=== PATIENT | male | born 1990 | race Caucasian/White ===

== ENCOUNTER 2018-02-23 15:24 | Emergency (ER) | payer SELFPAY ==
--- NOTE | 2018-02-23 16:52 | ER ---
Nurse's Notes [facility] Name: Mauricio Martinez Age: 27 yrs Sex: Male : 1990 Arrival Date: 02/23/2018 Time: 15:29 Bed 30 Private MD: Diagnosis: Nausea and vomiting;Diarrhea, unspecified Presentation: 02/23 16:05 Presenting complaint: Patient states: N/V/D x 4-5 days, states, " My job said I have to ph come get a work note since I've been sick for so long." Pt reports that last episode of vomiting was last night, also reports epigastric pain. Transition of care: patient was not received from another setting of care. Onset of symptoms was February 23, 2018. Risk Assessment: Do you want to hurt yourself or someone else? Patient reports no desire to harm self or others. Initial Sepsis Screen: Does the patient meet any 2 criteria? No. Patient's initial sepsis screen is negative. Does the patient have a suspected source of infection? No. Patient's initial sepsis screen is negative. Care prior to arrival: None. 16:05 Method Of Arrival: Ambulatory ph 16:05 Acuity: LUIS 3 ph Triage Assessment: 17:04 GI: Reports diarrhea, in the last couple of days but not today,. mg2 Historical: - Allergies: 16:09 No Known Allergies; ph - PMHx: 16:09 None; ph - PSHx: 16:09 None; ph - Immunization history:: Flu vaccine status is unknown. - Social history:: Smoking status: unknown. - Ebola Screening: : No symptoms or risks identified at this time. Screenin:03 Abuse screen: Denies threats or abuse. Denies injuries from another. Nutritional mg2 screening: No deficits noted. Tuberculosis screening: No symptoms or risk factors identified. Fall Risk None identified. Assessment: 16:51 General: Appears in no apparent distress. comfortable, Behavior is calm, cooperative, mg2 patient refused treatment. provider informed. patient just wants a work note. . 17:02 Pain: Denies pain. Neuro: Level of Consciousness is awake, alert, obeys commands, mg2 Oriented to person, place, time, situation. Cardiovascular: Capillary refill < 3 seconds Patient's skin is warm and dry. Respiratory: Airway is patent Respiratory effort is even, unlabored, Respiratory pattern is regular, symmetrical. GI: Abdomen is flat, non-distended. : No signs and/or symptoms were reported regarding the genitourinary system. EENT: No signs and/or symptoms were reported regarding the EENT system. Derm: Skin is intact, is healthy with good turgor, Skin is pink, warm \\T\\ dry. normal. Musculoskeletal: No signs and/or symptoms reported regarding the musculoskeletal system. Vital Signs: 16:08 BP 146 / 89; Pulse 115; Resp 18; Temp 98.4; Pulse Ox 98% on R/A; Weight 95.25 kg; ph Height 5 ft. 11 in. (180.34 cm); 16:08 Body Mass Index 29.29 (95.25 kg, 180.34 cm) ph ED Course: 15:29 Patient arrived in ED. mr 16:08 Triage completed. ph 16:09 Arm band placed on. ph 16:10 Karo Sheehan FNP-C [facility]. kb 16:10 Izabela Joya MD is Attending Physician. kb 16:40 Foster Brar, MALGORZATA is Primary Nurse. mg2 17:03 No provider procedures requiring assistance completed. Patient did not have IV access mg2 during this emergency room visit. 17:04 Patient has correct armband on for positive identification. mg2 Administered Medications: No medications were administered Outcome: 16:51 Discharge ordered by . kb 17:04 Discharged to home ambulatory. mg2 17:04 Condition: stable 17:04 Discharge instructions given to patient, Instructed on discharge instructions, follow up and referral plans. Demonstrated understanding of instructions, follow-up care. 17:05 Patient left the ED. mg2 Signatures: Karo Sheehan FNP-C FNP-Ckb Madhavi Morales Елена Juarez RN RN ph Foster Brar, MALGORZATA RN mg2 Corrections: (The following items were deleted from the chart) 17:03 16:51 General: patient refused treatment. provider informed. patient just wants a work mg2 note. . mg2
--- NOTE | 2018-02-23 16:52 | EDPHYS ---
Physician Documentation [facility] Name: Mauricio Martinez Age: 27 yrs Sex: Male : 1990 Arrival Date: 02/23/2018 Time: 15:29 Bed 30 Private MD: ED Physician Izabela Joya HPI: 02/23 16:48 This 27 yrs old Male presents to ER via Ambulatory with complaints of kb Vomiting/Diarrhea. 16:48 The patient presents to the emergency department with nausea, vomiting, diarrhea. kb Onset: The symptoms/episode began/occurred 4 day(s) ago. Possible causes: unknown. The symptoms are aggravated by nothing. The symptoms are alleviated by nothing. Associated signs and symptoms: Pertinent positives: diarrhea, nausea, vomiting, Pertinent negatives: abdominal pain, anorexia, belching, constipation, dysuria, fever, flatulence, GI bleeding, hematuria. Severity of symptoms: At their worst the symptoms were moderate in the emergency department the symptoms have resolved and did so earlier today. The patient has not experienced similar symptoms in the past. The patient has not recently seen a physician. Pt states he had n/v/d for 4 days, but symptoms resolved today. Came to ER because work told him he had to have a note to return. States he does not want any labs done or other treatment, just a work note. Tolerating PO intake. Historical: - Allergies: 16:09 No Known Allergies; ph - PMHx: 16:09 None; ph - PSHx: 16:09 None; ph - Immunization history:: Flu vaccine status is unknown. - Social history:: Smoking status: unknown. - Ebola Screening: : No symptoms or risks identified at this time. ROS: 16:47 Constitutional: Negative for fever, chills, and weight loss, Cardiovascular: Negative kb for chest pain, palpitations, and edema, Respiratory: Negative for shortness of breath, cough, wheezing, and pleuritic chest pain, Back: Negative for injury and pain, : Negative for injury, bleeding, discharge, and swelling, MS/Extremity: Negative for injury and deformity, Skin: Negative for injury, rash, and discoloration, Neuro: Negative for headache, weakness, numbness, tingling, and seizure. 16:47 Abdomen/GI: Positive for nausea, vomiting, and diarrhea, Negative for abdominal pain, constipation, abdominal cramps, abdominal distension, anorexia. Exam: 16:47 Constitutional: This is a well developed, well nourished patient who is awake, alert, kb and in no acute distress. Head/Face: Normocephalic, atraumatic. Chest/axilla: Normal chest wall appearance and motion. Nontender with no deformity. No lesions are appreciated. Cardiovascular: Regular rate and rhythm with a normal S1 and S2. No gallops, murmurs, or rubs. Normal PMI, no JVD. No pulse deficits. Respiratory: Lungs have equal breath sounds bilaterally, clear to auscultation and percussion. No rales, rhonchi or wheezes noted. No increased work of breathing, no retractions or nasal flaring. Abdomen/GI: Soft, non-tender, with normal bowel sounds. No distension or tympany. No guarding or rebound. No evidence of tenderness throughout. Skin: Warm, dry with normal turgor. Normal color with no rashes, no lesions, and no evidence of cellulitis. MS/ Extremity: Pulses equal, no cyanosis. Neurovascular intact. Full, normal range of motion. Neuro: Awake and alert, GCS 15, oriented to person, place, time, and situation. Cranial nerves II-XII grossly intact. Motor strength 5/5 in all extremities. Sensory grossly intact. Cerebellar exam normal. Normal gait. Vital Signs: 16:08 BP 146 / 89; Pulse 115; Resp 18; Temp 98.4; Pulse Ox 98% on R/A; Weight 95.25 kg; ph Height 5 ft. 11 in. (180.34 cm); 16:08 Body Mass Index 29.29 (95.25 kg, 180.34 cm) ph MDM: 16:33 Patient medically screened. kb 16:48 Data reviewed: vital signs, nurses notes. Data interpreted: Pulse oximetry: on room air kb is 98 %. Interpretation: normal. Counseling: I had a detailed discussion with the patient and/or guardian regarding: the historical points, exam findings, and any diagnostic results supporting the discharge/admit diagnosis, the need for outpatient follow up, a family practitioner, to return to the emergency department if symptoms worsen or persist or if there are any questions or concerns that arise at home. Refusal of service: The patient/guardian displays adequate decision making capability and despite a detailed discussion of alternatives, benefits, risks, and consequences refuses: all lab tests. 02/23 16:33 Order name: IV Saline Lock kb 02/23 16:33 Order name: Labs collected and sent Administered Medications: No medications were administered Disposition: 02/23/18 16:51 Discharged to Home. Impression: Nausea and vomiting, Diarrhea, unspecified. - Condition is Stable. - Discharge Instructions: Food Choices to Help Relieve Diarrhea, Adult, Nausea and Vomiting, Adult, [id number], Diarrhea, Adult, [id number]. - Work release form, Medication Reconciliation Form, Thank You Letter, Antibiotic Education, Prescription Opioid Use form. - Follow up: Emergency Department; When: As needed; Reason: Worsening of condition. Follow up: Private Physician; When: 2 - 3 days; Reason: Recheck today's complaints, Continuance of care, Re-evaluation by your physician. Addendum: 02/25/2018 15:30 Co-signature as Attending Physician, Izabela Joya MD. m a2 Signatures: Dispatcher [employer] EDKaro Kilgore FNP-C FNP-Елена Serrato, RN RN Izabela Joya MD MD ma2 Foster Brar RN RN mg2 Corrections: (The following items were deleted from the chart) 02/23 17:05 16:51 02/23/2018 16:51 Discharged to Home. Impression: Nausea and vomiting; Diarrhea, mg2 unspecified. Condition is Stable. Forms are Medication Reconciliation Form, Thank You Letter, Antibiotic Education, Prescription Opioid Use. Follow up: Emergency Department; When: As needed; Reason: Worsening of condition. Follow up: Private Physician; When: 2 - 3 days; Reason: Recheck today's complaints, Continuance of care, Re-evaluation by your physician. kb
== END 2018-02-23 17:05 | disposition home or self-care (01) ==
LOC: ER 15:24
DX: R11.2 Nausea with vomiting, unspecified (principal); R19.7 Diarrhea, unspecified
CPT/HCPCS: 99281